=== PATIENT | male | born 2005 | race Caucasian/White ===

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

== ENCOUNTER 2025-02-26 12:38 | Inpatient (IN) | payer OTHER ==
[~2025-02-26] VITALS: Ht 177.8 cm; Wt 77.3 kg
[2025-02-26 13:21] LABS: PLATELET COUNT, AUTOMATED 302 10^3/uL (150-450)
[2025-02-26 13:48] LABS: AMPHETAMINES LEVEL URINE NEGATIVE (NEGATIVE); BARBITURATES URINE NEGATIVE (NEGATIVE); BENZODIAZEPINES URINE NEGATIVE (NEGATIVE); COCAINE METABOLITE URINE NEGATIVE (NEGATIVE)
[2025-02-26 13:49] LABS: CANNABINOIDS URINE NEGATIVE (NEGATIVE); METHADONE URINE NEGATIVE (NEGATIVE); OPIATES URINE NEGATIVE (NEGATIVE); PHENCYCLIDINE URINE NEGATIVE (NEGATIVE)
[2025-02-26 13:49] LABS: ETHYL ALCOHOL (ETHANOL) < 0.003 % (0.000-0.010)
[2025-02-26 13:51] LABS: ALT/SGPT 49 U/L (7.0-40); AST/SGOT 24 U/L (<34); CALCIUM LEVEL 10.0 MG/DL (8.5-10.1); CARBON DIOXIDE LEVEL 28 MMOL/L (20-31); CHLORIDE LEVEL 105 MMOL/L (98-107); CREATININE FOR GFR 0.90 MG/DL (0.70-1.30); GLOMERULAR FILTRATION RATE > 90.0 (>60); POTASSIUM SERUM 4.0 MMOL/L (3.5-5.1); SALICYLATE LEVEL < 3.0 MG/DL (<30); SODIUM LEVEL 143 MMOL/L (136-145)
[2025-02-26] MEDS ORDERED: CETI-24 PO (16:21)
[2025-02-26] MEDS ORDERED: ALBU8.5H INH (16:21)
[2025-02-26] MEDS ORDERED: ARNU1INH INH (16:21)
[2025-02-26] MEDS ORDERED: LISD40CA PO (16:21)
[2025-02-26] MEDS ORDERED: THERTAB52 PO (16:21)
[2025-02-26] MEDS ORDERED: HOME MED LIST COMPLETE! XX SCH (16:25)
[2025-02-26] MEDS ORDERED: ALBUTEROL 90 MCG/ACT 8 GM HFA INHALER INH PRN (17:45)
[2025-02-26] MEDS: FLUTICASONE 44 MCG INH SCH (19:28)
[2025-02-26] MEDS ORDERED: MAALOX 30 ML SUSP *UDC PO PRN (20:05)
[2025-02-26] MEDS ORDERED: traZODone 50 MG TAB PO PRN (20:05)
[2025-02-26] MEDS ORDERED: IBUPROFEN 400 MG TAB PO PRN (20:05)
[2025-02-26] MEDS ORDERED: MOM 30 ML SUSPENSION UDC PO PRN (20:05)
[2025-02-26] MEDS ORDERED: ACETAMINOPHEN 325 MG TAB PO PRN (20:05)
[2025-02-26 21:12] VITALS: BP 133/75; TEMP 98.2; O2SAT 99
[2025-02-27] MEDS ORDERED: ENTER DRUG NAME HERE (PATIENT'S OWN MED) PO SCH (09:00)
[2025-02-27] MEDS ORDERED: LISDEXAMFETAMINE 40 MG PO SCH (09:00)
[2025-02-27] MEDS: MULTIVITAMINS/MINERALS THERAP 1 TAB PO SCH (09:29)
[2025-02-27] MEDS: buPROPion **XL** 150 MG TABLET PO SCH (11:06)
[2025-02-27] MEDS ORDERED: CETIRIZINE 10 MG TAB PO SCH (12:00)
[2025-02-27 15:09] VITALS: BP 116/72; TEMP 98.3; O2SAT 98
[2025-02-27] MEDS ORDERED: ALBUTEROL 90 MCG/ACT 8 GM HFA INHALER INH PRN (18:50)
[2025-02-27] MEDS: FLUTICASONE HFA 110 MCG 12 GM INHALER INH SCH (20:37)
[2025-02-27] MEDS: CETIRIZINE 10 MG TAB PO SCH (20:37)
[2025-02-28 06:18] VITALS: BP 110/57; TEMP 97.1; O2SAT 99
[2025-02-28 06:20] VITALS: BP 117/65; TEMP 96.9; O2SAT 99
[2025-02-28] MEDS: LISDEXAMFETAMINE 40 MG PO SCH (08:16)
[2025-02-28 15:11] VITALS: BP 130/82; TEMP 98.4; O2SAT 99
[2025-03-01 06:33] VITALS: BP 119/61; TEMP 97.9; O2SAT 99
[2025-03-01 16:30] VITALS: BP 140/81; TEMP 97.3; O2SAT 98
[2025-03-01] MEDS ORDERED: BUPR150T12 PO (21:24)
[2025-03-01] MEDS ORDERED: TRAZ-252 PO (21:24)
[2025-03-01] MEDS ORDERED: HYDR-3363 PO (21:24)
[2025-03-02 06:28] VITALS: BP 132/64; TEMP 97.7; O2SAT 98
== END 2025-03-02 14:10 | disposition home or self-care (01) | DRG 885 ==
LOC: M ED 12:38 → M ED INP 20:05 → M PSY 20:30
PROVIDERS: ADMIT Student in an Organized Health Care Education/Training Program; ATTEND Student in an Organized Health Care Education/Training Program
DX: F33.1 Major depressive disorder, recurrent, moderate (principal); R45.851 Suicidal ideations; F41.9 Anxiety disorder, unspecified; Z88.0 Allergy status to penicillin; Z79.899 Other long term (current) drug therapy